=== PATIENT | female | born 1940 | race Caucasian/White ===

== ENCOUNTER 2016-11-23 07:46 | Observation (INO) | payer OTHER ==
[~2016-11-23] VITALS: Ht 165.1 cm; Wt 90.7 kg
--- NOTE | 2016-11-23 08:29 | PHYS DOC ---
Past Medical History Past Medical History: Diabetes-Type I, Hypertension Past Surgical History: No Surgical History Smoking: Quit Greater Than 1 Year Alcohol Use: None Drug Use: None Adult General Chief Complaint Chief Complaint: MULTIPLE COMPLAINTS HPI HPI Patient is a 76 year old female presents to the emergency department with a history of confusion, SOA, fever and productive yellow cough for the last week. Family states she has had normal BS until recently and then they became high. Patient and family are unsure of fever at home. Patient has past hx of smoking. Does not require home O2. Patients O2 sats in upper 80s on RA. Review of Systems Review of Systems Constitutional: Denies fever or chills [] Eyes: Denies change in visual acuity, redness, or eye pain [] HENT: Denies nasal congestion or sore throat [] Respiratory: cough and shortness of breath [] Cardiovascular: No additional information not addressed in HPI [] GI: Denies abdominal pain, nausea, vomiting, bloody stools or diarrhea [] : Denies dysuria or hematuria [] Musculoskeletal: Denies back pain or joint pain [] Integument: Denies rash or skin lesions [] Neurologic: Denies headache, focal weakness or sensory changes. Family states she was confused Endocrine: Denies polyuria or polydipsia [] Current Medications Current Medications Current Medications Medications (Trade) Dose Ordered Sig/Jeevan Start Time Stop Time Status Last Admin Dose Admin Acetaminophen/ Hydrocodone Bitart (Lortab 5/325) 1 tab 1X ONCE 11/23/16 09:30 11/23/16 09:31 DC 11/23/16 09:50 1 TAB Albuterol/ Ipratropium (Duoneb) 3 ml 1X ONCE 11/23/16 08:30 11/23/16 08:31 DC 11/23/16 08:35 3 ML Methylprednisolone Sodium Succinate (SOLU-Medrol 125MG VIAL) 125 mg 1X ONCE 11/23/16 08:30 11/23/16 08:31 DC 11/23/16 09:08 125 MG Sodium Chloride 500 ml @ 1,000 mls/hr 1X ONCE 11/23/16 08:30 11/23/16 08:59 DC 11/23/16 09:02 1,000 MLS/HR Allergies Allergies Allergies Coded Allergies Type Severity Reaction Last Updated Verified No Known Drug Allergies 11/23/16 No Physical Exam Physical Exam Constitutional: Well developed, well nourished, no acute distress, non-toxic appearance. [] HENT: Normocephalic, atraumatic, bilateral external ears normal, oropharynx moist, no oral exudates, nose normal. [] Eyes: PERRLA, EOMI, conjunctiva normal, no discharge. [] Neck: Normal range of motion, no tenderness, supple, no stridor. [] Cardiovascular:Heart rate regular rhythm, no murmur [] Lungs & Thorax: Bilateral breath sounds decreased bilaterally Skin: Warm, dry, no erythema, no rash. [] Back: No tenderness Extremities: No tenderness, no cyanosis, no clubbing, ROM intact, no edema. [] Neurologic: Alert and oriented X 3, normal motor function, normal sensory function, no focal deficits noted. [] Psychologic: Affect normal, judgement normal, mood normal. [] Current Patient Data Vital Signs Vital Signs Date Time Temp Pulse Resp B/P (MAP) Pulse Ox O2 Delivery O2 Flow Rate FiO2 11/23/16 09:50 26 11/23/16 08:41 98 Nasal Cannula 2.0 11/23/16 08:38 99.9 113 131/83 (99) 99.9 Lab Values Laboratory Tests Test 11/23/16 08:13 11/23/16 08:30 White Blood Count 6.0 x10^3/uL (4.0-11.0) Red Blood Count 4.14 x10^6/uL (3.50-5.40) Hemoglobin 12.7 g/dL (12.0-15.5) Hematocrit 37.1 % (36.0-47.0) Mean Corpuscular Volume 90 fL (79-100) Mean Corpuscular Hemoglobin 31 pg (25-35) Mean Corpuscular Hemoglobin Concent 34 g/dL (31-37) Red Cell Distribution Width 15.6 % (11.5-14.5) H Platelet Count 190 x10^3/uL (140-400) Neutrophils (%) (Auto) 67 % (31-73) Lymphocytes (%) (Auto) 13 % (24-48) L Monocytes (%) (Auto) 18 % (0-9) H Eosinophils (%) (Auto) 1 % (0-3) Basophils (%) (Auto) 0 % (0-3) Neutrophils # (Auto) 4.0 x10^3uL (1.8-7.7) Lymphocytes # (Auto) 0.8 x10^3/uL (1.0-4.8) L Monocytes # (Auto) 1.1 x10^3/uL (0.0-1.1) Eosinophils # (Auto) 0.1 x10^3/uL (0.0-0.7) Basophils # (Auto) 0.0 x10^3/uL (0.0-0.2) Sodium Level 140 mmol/L (136-145) Potassium Level 4.9 mmol/L (3.5-5.1) Chloride Level 102 mmol/L (98-107) Carbon Dioxide Level 28 mmol/L (21-32) Anion Gap 10 (6-14) Blood Urea Nitrogen 27 mg/dL (7-20) H Creatinine 1.2 mg/dL (0.6-1.0) H Estimated GFR (Cockcroft-Gault) 43.9 BUN/Creatinine Ratio 23 (6-20) H Glucose Level 233 mg/dL (70-99) H Lactic Acid Level 1.1 mmol/L (0.4-2.0) Calcium Level 10.4 mg/dL (8.5-10.1) H Total Bilirubin 1.0 mg/dL (0.2-1.0) Aspartate Amino Transferase (AST) 26 U/L (15-37) Alanine Aminotransferase (ALT) 18 U/L (14-59) Alkaline Phosphatase 142 U/L (46-116) H Troponin I Quantitative < 0.017 ng/mL (0.000-0.055) Total Protein 7.7 g/dL (6.4-8.2) Albumin 3.4 g/dL (3.4-5.0) Albumin/Globulin Ratio 0.8 (1.0-1.7) L Urine Collection Type Unknown Urine Color Maria Luz Urine Clarity Clear Urine pH 5.5 Urine Specific [place] 1.020 Urine Protein 30 mg/dL (NEG-TRACE) Urine Glucose (UA) 500 mg/dL (NEG) Urine Ketones (Stick) Trace mg/dL (NEG) Urine Blood Negative (NEG) Urine Nitrite Negative (NEG) Urine Bilirubin Small (NEG) Urine Urobilinogen Dipstick 1.0 mg/dL (0.2 mg/dL) Urine Leukocyte Esterase Negative (NEG) Urine RBC 0 /HPF (0-2) Urine WBC Occ /HPF (0-4) Urine Squamous Epithelial Cells Many /LPF Urine Bacteria Few /HPF (0-FEW) Urine Hyaline Casts Few /HPF Urine Mucus Mod /LPF Laboratory Tests 11/23/16 08:13 Laboratory Tests 11/23/16 08:13 EKG EKG EKG completed at [address] no STEMI per Dr Pelayo[] Radiology/Procedures Radiology/Procedures [][facility] [address] [place] [address] IMAGING REPORT Signed PATIENT: BRENNA RODGERS ACCOUNT: [id number] : 1940 LOCATION: ER AGE: 76 SEX: F EXAM STATUS: PRE ER ORD. PHYSICIAN: GILBERT DE LEÓN APRN REASON: SOA, productive cough x 1 week PROCEDURE: PORTABLE CHEST 1V INDICATION: SOA, productive cough x 1 week COMPARISON: 05/05/2010 FINDINGS: Single view of chest obtained. Mild calcific atherosclerosis. No definite focal airspace consolidation or pulmonary edema. Cardiac silhouette is not enlarged Degenerative changes left shoulder. IMPRESSION: No definite focal airspace consolidation or edema. DICTATED and SIGNED BY: YOUSUF JOHNSON MD DATE: 11/23/16 0903 CC: GILBERT DE LEÓN APRN; VANESSA BURCH MD ~ Course & Med Decision Making Course & Med Decision Making Pertinent Labs and Imaging studies reviewed. (See chart for details) Patient was placed on O2 at 2 L per NC with O2 sats increased to 94%. Patient with RT treatment with minimal improvement noted. Patient with tailbone pain from fall. [place] given to patient Spoke with Dr Cordoba in regards to patient being placed in the hospital as observation. [] Dragon Disclaimer Dragon Disclaimer This electronic medical record was generated, in whole or in part, using a voice recognition dictation system. Departure Departure Impression: Primary Impression: Dyspnea Disposition: ADMITTED INPATIENT Admitting Physician: Vern Cordoba Referrals: VANESSA BURCH MD (PCP) GILBERT DE LEÓN APRN Nov 23, 2016 08:29
[2016-11-23] MEDS ORDERED: IPRATRPIUM/ALBUTEROL 0.5/2.5MG 3 ML NEBU. NEB ONE (08:30)
[2016-11-23] MEDS ORDERED: IV NORMAL SALINE 1000ML BAG 500 ML IV ONE (08:30)
[2016-11-23] MEDS ORDERED: methylPREDNISolone SOD SUCC PF 125 MG/2 ML VIAL. IV ONE (08:30)
[2016-11-23 08:39] LABS: BASO % 0 % (0-3); EOS % 1 % (0-3); HEMATOCRIT 37.1 % (36.0-47.0); HEMOGLOBIN 12.7 g/dL (12.0-15.5); LYMPH # 0.8 x10^3/uL (1.0-4.8); LYMPH % 13 % (24-48); MEAN CORPUSCULAR HEMOGLOBIN 31 pg (25-35); MEAN CORPUSCULAR HGB CONC 34 g/dL (31-37); MEAN CORPUSCULAR VOLUME 90 fL (79-100); MONO % 18 % (0-9); NEUT % 67 % (31-73); PLATELET COUNT 190 x10^3/uL (140-400); RED BLOOD COUNT 4.14 x10^6/uL (3.50-5.40); RED CELL DISTRIBUTION WIDTH 15.6 % (11.5-14.5)
[2016-11-23 08:48] LABS: BILIRUBIN,URINE SMALL (NEG); GLUCOSE,URINE 500 mg/dL (NEG); NITRITE,URINE NEGATIVE (NEG); PH,URINE 5.5; PROTEIN,URINE 30 mg/dL (NEG-TRACE)
[2016-11-23 08:53] LABS: CALCIUM 10.4 mg/dL (8.5-10.1); CREATININE 1.2 mg/dL (0.6-1.0); GFR 43.9; POTASSIUM 4.9 mmol/L (3.5-5.1)
[2016-11-23 08:59] LABS: ALBUMIN 3.4 g/dL (3.4-5.0); ALBUMIN/GLOBULIN RATIO 0.8 (1.0-1.7); TOTAL PROTEIN 7.7 g/dL (6.4-8.2)
--- NOTE | 2016-11-23 09:07 | RAD ---
INDICATION: SOA, productive cough x 1 week COMPARISON: 05/05/2010 FINDINGS: Single view of chest obtained. Mild calcific atherosclerosis. No definite focal airspace consolidation or pulmonary edema. Cardiac silhouette is not enlarged Degenerative changes left shoulder. IMPRESSION: No definite focal airspace consolidation or edema.
[2016-11-23 09:26] LABS: RBC,URINE 0 /HPF (0-2); SQUAMOUS EPITHELIAL CELL,UR MANY /LPF
[2016-11-23 09:27] LABS: BACTERIA,URINE FEW /HPF (0-FEW); WBC,URINE OCC /HPF (0-4)
[2016-11-23] MEDS ORDERED: HYDROcodone/APAP 5/325MG 1 TAB TABLET PO ONE (09:30)
[2016-11-23] MEDS ORDERED: ACETAMINOPHEN 325 MG TABLET. PO PRN ×3 (10:00→15:00)
[2016-11-23] MEDS ORDERED: HYDROcodone/APAP 5/325MG 1 TAB TABLET PO PRN ×2 (10:00→13:00)
--- NOTE | 2016-11-23 10:19 | EKG ---
[facility] [address] [place] [address] Test Date: 2016-11-23 Test Time: 08:54:19 Pat Name: BRENNA RODGERS Department: Room: Gender: F [employer]: : 1940 Requested By: GILBERT DE LEÓN Order Number: [id number] Reading MD: Measurements Intervals [place] Rate: 109 P: 48 MS: 162 QRS: -28 QRSD: 64 T: 40 QT: 286 QTc: 386 Interpretive Statements SINUS TACHYCARDIA LEFT ATRIAL ABNORMALITY LEFTWARD AXIS QRS(T) CONTOUR ABNORMALITY CONSISTENT WITH ANTEROSEPTAL INFARCT AGE UNDETERMINED RI6.01 Unconfirmed report No previous ECG available for comparison
[2016-11-23 12:10] VITALS: BP 136/69
[2016-11-23] MEDS ORDERED: AMLO5TAB2 PO (12:39)
[2016-11-23] MEDS ORDERED: LIPITOR80 MG PO (12:39)
[2016-11-23] MEDS ORDERED: DIVA500T9 PO (12:39)
[2016-11-23] MEDS ORDERED: OMEG1CAP6 PO (12:39)
[2016-11-23] MEDS ORDERED: GLIP5TAB10 PO (12:39)
[2016-11-23] MEDS ORDERED: QUET300T5 PO (12:39)
[2016-11-23] MEDS ORDERED: METF500T4 PO (12:39)
[2016-11-23] MEDS ORDERED: ZOLP5TAB5 PO (12:39)
[2016-11-23] MEDS ORDERED: ONDANSETRON PF 4 MG/2 ML VIAL. IV PRN ×2 (13:00→15:00)
[2016-11-23] MEDS ORDERED: hydrALAZINE 20 MG/ML VIAL. IVP PRN ×2 (13:00→15:00)
[2016-11-23] MEDS ORDERED: ALBUTEROL SULFATE 2.5 MG/3 ML NEBU. NEB PRN ×2 (13:00→15:00)
[2016-11-23] MEDS: IPRATRPIUM/ALBUTEROL 0.5/2.5MG 3 ML NEBU. NEB SCH ×3 (13:01→19:11)
--- NOTE | 2016-11-23 14:56 | PDOC1 ---
History and Physical Identification/Chief Complaint Chief Complaint Date of examination: 11/23/2016 Chief complaint: cough and shortness of breath History of present illness: A 76-year-old female patient with prior history of hypertension and type 2 diabetes mellitus presented to the ER with worsening shortness of breath for nearly one week with cough expectoration and subjective fevers at home, as per the ER notes patient was running to keep her without any shortness of breath. At the time of examination on floor, patient still complains of shortness of breath with cough with expectoration denies any fever , denies any chills, denies any travel history. Patient had limited mobility due to her fall in the past. She is not a smoker quit smoking been 20 years ago. She denies any chest pain or syncope Past medical history hypertension and type 2 diabetes mellitus Family history heart disease Personal history no smoking no alcohol no drug abuse Problems: Current Problem List Problem List Problems Medical Problems: (1) Dyspnea Status: Acute Current Medications Current Medications Current Medications Medications (Trade) Dose Ordered Sig/Jeevan Start Time Stop Time Status Last Admin Dose Admin Acetaminophen (Tylenol) 325 mg PRN Q6HRS PRN 11/23/16 13:00 Acetaminophen/ Hydrocodone Bitart (Lortab 5/325) 1 tab PRN Q6HRS PRN 11/23/16 13:00 Albuterol Sulfate (Ventolin Neb Soln) 2.5 mg PRN Q4HRS PRN 11/23/16 13:00 Albuterol/ Ipratropium (Duoneb) 3 ml RTQID 11/23/16 12:00 11/23/16 13:01 3 ML Amlodipine Besylate (Norvasc) 5 mg DAILY 11/24/16 09:00 Atorvastatin Calcium (Lipitor) 80 mg QHS 11/23/16 21:00 Divalproex Sodium (Depakote) 500 mg HS 11/23/16 21:00 Glipizide (Glucotrol) 5 mg BIDBFRMEAL 11/23/16 16:30 Hydralazine HCl (Apresoline) 10 mg PRN Q4HRS PRN 11/23/16 13:00 Metformin HCl (Glucophage) 500 mg BIDWMEALS 11/23/16 17:00 Methylprednisolone Sodium Succinate (SOLU-Medrol 125MG VIAL) 125 mg 1X ONCE 11/23/16 08:30 11/23/16 08:31 DC 11/23/16 09:08 125 MG Ondansetron HCl (Zofran) 4 mg PRN Q8HRS PRN 11/23/16 13:00 Prednisone (Prednisone) 40 mg DAILY 11/24/16 09:00 Quetiapine Fumarate (SEROquel XR) 300 mg HS 11/24/16 09:00 Sodium Chloride 500 ml @ 1,000 mls/hr 1X ONCE 11/23/16 08:30 11/23/16 08:59 DC 11/23/16 09:02 1,000 MLS/HR Zolpidem Tartrate (Ambien) 5 mg HS 11/23/16 21:00 Allergies Allergies Allergies Coded Allergies Type Severity Reaction Last Updated Verified No Known Drug Allergies 11/23/16 No ROS Review of System CONSTITUTIONAL: No fever or chills EYES: No recent changes SKIN: No rash or itching CARDIOVASCULAR: No chest pain, syncope, palpitations, or edema RESPIRATORY: SOB or cough GASTROINTESTINAL: No nausea, vomiting or abdominal pain NEUROLOGICAL: No headaches or weakness ENDOCRINE: No cold or heat intolerance GENITOURINARY: No urgency or frequency of urination MUSCULOSKELETAL: No back pain or joint pain LYMPHATICS: No enlarged lymph nodes PSYCHIATRIC: No anxiety or depression Physical Exam Physical Exam GEN.: No apparent distress. Alert and oriented. HEENT: Head is normocephalic, atraumatic NECK: Supple. No JVD LUNGS: Normal airflow, basal rales HEART: RRR, S1, S2 present. Peripheral pulses intact ABDOMEN: Soft, nontender. Positive bowel sounds. EXTREMITIES: Without any cyanosis. NEUROLOGIC: Normal speech, normal tone PSYCHIATRIC: Normal affect, normal mood. SKIN: No visible cyanosis or erythema Vitals Vitals Vital Signs Date Time Temp Pulse Resp B/P (MAP) Pulse Ox O2 Delivery O2 Flow Rate FiO2 11/23/16 13:04 98 Nasal Cannula 2.0 11/23/16 12:10 97.9 98 18 136/69 (91) 97.9 Labs Labs Laboratory Tests Test 11/23/16 08:13 11/23/16 08:30 White Blood Count 6.0 x10^3/uL (4.0-11.0) Red Blood Count 4.14 x10^6/uL (3.50-5.40) Hemoglobin 12.7 g/dL (12.0-15.5) Hematocrit 37.1 % (36.0-47.0) Mean Corpuscular Volume 90 fL (79-100) Mean Corpuscular Hemoglobin 31 pg (25-35) Mean Corpuscular Hemoglobin Concent 34 g/dL (31-37) Red Cell Distribution Width 15.6 % (11.5-14.5) Platelet Count 190 x10^3/uL (140-400) Neutrophils (%) (Auto) 67 % (31-73) Lymphocytes (%) (Auto) 13 % (24-48) Monocytes (%) (Auto) 18 % (0-9) Eosinophils (%) (Auto) 1 % (0-3) Basophils (%) (Auto) 0 % (0-3) Neutrophils # (Auto) 4.0 x10^3uL (1.8-7.7) Lymphocytes # (Auto) 0.8 x10^3/uL (1.0-4.8) Monocytes # (Auto) 1.1 x10^3/uL (0.0-1.1) Eosinophils # (Auto) 0.1 x10^3/uL (0.0-0.7) Basophils # (Auto) 0.0 x10^3/uL (0.0-0.2) Sodium Level 140 mmol/L (136-145) Potassium Level 4.9 mmol/L (3.5-5.1) Chloride Level 102 mmol/L (98-107) Carbon Dioxide Level 28 mmol/L (21-32) Anion Gap 10 (6-14) Blood Urea Nitrogen 27 mg/dL (7-20) Creatinine 1.2 mg/dL (0.6-1.0) Estimated GFR (Cockcroft-Gault) 43.9 BUN/Creatinine Ratio 23 (6-20) Glucose Level 233 mg/dL (70-99) Lactic Acid Level 1.1 mmol/L (0.4-2.0) Calcium Level 10.4 mg/dL (8.5-10.1) Total Bilirubin 1.0 mg/dL (0.2-1.0) Aspartate Amino Transf (AST/SGOT) 26 U/L (15-37) Alanine Aminotransferase (ALT/SGPT) 18 U/L (14-59) Alkaline Phosphatase 142 U/L (46-116) Troponin I Quantitative < 0.017 ng/mL (0.000-0.055) Total Protein 7.7 g/dL (6.4-8.2) Albumin 3.4 g/dL (3.4-5.0) Albumin/Globulin Ratio 0.8 (1.0-1.7) Urine Collection Type Unknown Urine Color Maria Luz Urine Clarity Clear Urine pH 5.5 Urine Specific [place] 1.020 Urine Protein 30 mg/dL (NEG-TRACE) Urine Glucose (UA) 500 mg/dL (NEG) Urine Ketones (Stick) Trace mg/dL (NEG) Urine Blood Negative (NEG) Urine Nitrite Negative (NEG) Urine Bilirubin Small (NEG) Urine Urobilinogen Dipstick 1.0 mg/dL (0.2 mg/dL) Urine Leukocyte Esterase Negative (NEG) Urine RBC 0 /HPF (0-2) Urine WBC Occ /HPF (0-4) Urine Squamous Epithelial Cells Many /LPF Urine Bacteria Few /HPF (0-FEW) Urine Hyaline Casts Few /HPF Urine Mucus Mod /LPF Laboratory Tests Test 11/23/16 08:13 11/23/16 08:30 White Blood Count 6.0 x10^3/uL (4.0-11.0) Red Blood Count 4.14 x10^6/uL (3.50-5.40) Hemoglobin 12.7 g/dL (12.0-15.5) Hematocrit 37.1 % (36.0-47.0) Mean Corpuscular Volume 90 fL (79-100) Mean Corpuscular Hemoglobin 31 pg (25-35) Mean Corpuscular Hemoglobin Concent 34 g/dL (31-37) Red Cell Distribution Width 15.6 % (11.5-14.5) Platelet Count 190 x10^3/uL (140-400) Neutrophils (%) (Auto) 67 % (31-73) Lymphocytes (%) (Auto) 13 % (24-48) Monocytes (%) (Auto) 18 % (0-9) Eosinophils (%) (Auto) 1 % (0-3) Basophils (%) (Auto) 0 % (0-3) Neutrophils # (Auto) 4.0 x10^3uL (1.8-7.7) Lymphocytes # (Auto) 0.8 x10^3/uL (1.0-4.8) Monocytes # (Auto) 1.1 x10^3/uL (0.0-1.1) Eosinophils # (Auto) 0.1 x10^3/uL (0.0-0.7) Basophils # (Auto) 0.0 x10^3/uL (0.0-0.2) Sodium Level 140 mmol/L (136-145) Potassium Level 4.9 mmol/L (3.5-5.1) Chloride Level 102 mmol/L (98-107) Carbon Dioxide Level 28 mmol/L (21-32) Anion Gap 10 (6-14) Blood Urea Nitrogen 27 mg/dL (7-20) Creatinine 1.2 mg/dL (0.6-1.0) Estimated GFR (Cockcroft-Gault) 43.9 BUN/Creatinine Ratio 23 (6-20) Glucose Level 233 mg/dL (70-99) Lactic Acid Level 1.1 mmol/L (0.4-2.0) Calcium Level 10.4 mg/dL (8.5-10.1) Total Bilirubin 1.0 mg/dL (0.2-1.0) Aspartate Amino Transf (AST/SGOT) 26 U/L (15-37) Alanine Aminotransferase (ALT/SGPT) 18 U/L (14-59) Alkaline Phosphatase 142 U/L (46-116) Troponin I Quantitative < 0.017 ng/mL (0.000-0.055) Total Protein 7.7 g/dL (6.4-8.2) Albumin 3.4 g/dL (3.4-5.0) Albumin/Globulin Ratio 0.8 (1.0-1.7) Urine Collection Type Unknown Urine Color Maria Luz Urine Clarity Clear Urine pH 5.5 Urine Specific [place] 1.020 Urine Protein 30 mg/dL (NEG-TRACE) Urine Glucose (UA) 500 mg/dL (NEG) Urine Ketones (Stick) Trace mg/dL (NEG) Urine Blood Negative (NEG) Urine Nitrite Negative (NEG) Urine Bilirubin Small (NEG) Urine Urobilinogen Dipstick 1.0 mg/dL (0.2 mg/dL) Urine Leukocyte Esterase Negative (NEG) Urine RBC 0 /HPF (0-2) Urine WBC Occ /HPF (0-4) Urine Squamous Epithelial Cells Many /LPF Urine Bacteria Few /HPF (0-FEW) Urine Hyaline Casts Few /HPF Urine Mucus Mod /LPF VTE Prophylaxis Ordered VTE Prophylaxis Devices: Yes VTE Pharmacological Prophylaxi: Yes Assessment/Plan Assessment/Plan Acute respiratory distress possible due to pneumonia versus bronchitis Hyperlipidemia Hypertension Type 2 diabetes mellitus Plan As needed and Robitussin Continue IV Levaquin Supplemental oxygen as needed, patient do not take any oxygen at home Home medication continued Labs reviewed chest x-ray reviewed no acute findings noted Discharge planning tomorrow 6 minutes walk test before discharge CBC BMP and as needed bronchodilators Case discussed with ER JAMES GRAY MD Nov 23, 2016 14:56
[2016-11-23 14:57] VITALS: BP 118/53
[2016-11-23] MEDS ORDERED: levOFLOXacin PER PHARMACY. MC PRN (15:00)
[2016-11-23] MEDS ORDERED: guaiFENesin DM 200MG/20MG 10 ML SYRUP PO PRN (15:00)
[2016-11-23] MEDS: metFORMIN 500 MG TABLET PO SCH (17:21)
[2016-11-23] MEDS: glipiZIDE 5 MG TABLET PO SCH (17:21)
[2016-11-23 19:00] VITALS: BP 119/65
[2016-11-23] MEDS: DIVALPROEX DELAYED RELEASE 500 MG TABLET.DR. PO SCH (21:29)
[2016-11-23] MEDS: ZOLPIDEM 5 MG TABLET. PO SCH (21:29)
[2016-11-23] MEDS: ATORVASTATIN CALCIUM 40 MG TABLET. PO SCH (21:29)
[2016-11-23 23:00] VITALS: BP 128/66
[2016-11-24 05:40] LABS: BASO % 0 % (0-3); EOS % 0 % (0-3); HEMATOCRIT 35.6 % (36.0-47.0); HEMOGLOBIN 11.9 g/dL (12.0-15.5); LYMPH # 0.7 x10^3/uL (1.0-4.8); LYMPH % 13 % (24-48); MEAN CORPUSCULAR HEMOGLOBIN 31 pg (25-35); MEAN CORPUSCULAR HGB CONC 33 g/dL (31-37); MEAN CORPUSCULAR VOLUME 92 fL (79-100); MONO % 13 % (0-9); NEUT % 74 % (31-73); PLATELET COUNT 195 x10^3/uL (140-400); RED BLOOD COUNT 3.89 x10^6/uL (3.50-5.40); RED CELL DISTRIBUTION WIDTH 15.3 % (11.5-14.5); WHITE BLOOD COUNT 5.6 x10^3/uL (4.0-11.0)
[2016-11-24 05:44] LABS: CALCIUM 9.3 mg/dL (8.5-10.1); CREATININE 1.3 mg/dL (0.6-1.0); POTASSIUM 4.8 mmol/L (3.5-5.1)
[2016-11-24] MEDS: IPRATRPIUM/ALBUTEROL 0.5/2.5MG 3 ML NEBU. NEB SCH ×4 (07:07→20:02)
[2016-11-24 07:50] VITALS: BP 135/63
[2016-11-24] MEDS: metFORMIN 500 MG TABLET PO SCH ×2 (08:13→17:23)
[2016-11-24] MEDS: glipiZIDE 5 MG TABLET PO SCH ×2 (08:13→17:25)
[2016-11-24] MEDS: amLODIPine BESYLATE 5 MG TABLET PO SCH (08:14)
[2016-11-24] MEDS: predniSONE 20 MG TABLET PO SCH (08:14)
[2016-11-24] MEDS ORDERED: QUEtiapine 300 MG TAB.ER.24H. PO SCH (09:00)
[2016-11-24 10:57] VITALS: BP 132/77
[2016-11-24 14:59] VITALS: BP 163/106
[2016-11-24] MEDS ORDERED: DEXTROSE 50% 25 GM / 50ML DISP.SYRIN. IV PRN (15:15)
--- NOTE | 2016-11-24 15:18 | PDOC ---
PROGRESS NOTES Chief Complaint Chief Complaint acute hypoxic respiratory failure acute on chronic bronchitis poss COPD obesity, BMI 33 Dm2 History of Present Illness History of Present Illness cough, wheeze, dyspnea she reports not feeling much improved no event add inhl steroid, anti-tussive, consult PULM Vitals Vitals Vital Signs Date Time Temp Pulse Resp B/P (MAP) Pulse Ox O2 Delivery O2 Flow Rate FiO2 11/24/16 15:08 Nasal Cannula 2.5 11/24/16 14:59 98.1 105 18 163/106 (125) 94 98.1 Physical Exam General: Alert, Oriented X3, Cooperative, No acute distress Heart: Regular rate Lungs: Other (low volume, end vol rales, no wheeze, mod effort) Extremities: No clubbing, No edema, Normal pulses Skin: No breakdown, No significant lesion Labs LABS Laboratory Tests Test 11/24/16 04:50 11/24/16 07:31 White Blood Count 5.6 x10^3/uL (4.0-11.0) Red Blood Count 3.89 x10^6/uL (3.50-5.40) Hemoglobin 11.9 g/dL (12.0-15.5) Hematocrit 35.6 % (36.0-47.0) Mean Corpuscular Volume 92 fL (79-100) Mean Corpuscular Hemoglobin 31 pg (25-35) Mean Corpuscular Hemoglobin Concent 33 g/dL (31-37) Red Cell Distribution Width 15.3 % (11.5-14.5) Platelet Count 195 x10^3/uL (140-400) Neutrophils (%) (Auto) 74 % (31-73) Lymphocytes (%) (Auto) 13 % (24-48) Monocytes (%) (Auto) 13 % (0-9) Eosinophils (%) (Auto) 0 % (0-3) Basophils (%) (Auto) 0 % (0-3) Neutrophils # (Auto) 4.1 x10^3uL (1.8-7.7) Lymphocytes # (Auto) 0.7 x10^3/uL (1.0-4.8) Monocytes # (Auto) 0.7 x10^3/uL (0.0-1.1) Eosinophils # (Auto) 0.0 x10^3/uL (0.0-0.7) Basophils # (Auto) 0.0 x10^3/uL (0.0-0.2) Sodium Level 140 mmol/L (136-145) Potassium Level 4.8 mmol/L (3.5-5.1) Chloride Level 103 mmol/L (98-107) Carbon Dioxide Level 24 mmol/L (21-32) Anion Gap 13 (6-14) Blood Urea Nitrogen 32 mg/dL (7-20) Creatinine 1.3 mg/dL (0.6-1.0) Estimated GFR (Cockcroft-Gault) 40.0 Glucose Level 295 mg/dL (70-99) Calcium Level 9.3 mg/dL (8.5-10.1) Glucose (Fingerstick) 272 mg/dL (70-99) Review of Systems Review of Systems weakness lethargy cough, and dyspnea Assessment and Plan Assessmemt and Plan Problems Medical Problems: (1) Dyspnea Status: Acute Problems: Comment Review of Relevant I have reviewed the following items julita (where applicable) has been applied. Labs Laboratory Tests Test 11/23/16 08:13 11/23/16 08:30 11/24/16 04:50 11/24/16 07:31 White Blood Count 6.0 x10^3/uL (4.0-11.0) 5.6 x10^3/uL (4.0-11.0) Red Blood Count 4.14 x10^6/uL (3.50-5.40) 3.89 x10^6/uL (3.50-5.40) Hemoglobin 12.7 g/dL (12.0-15.5) 11.9 g/dL (12.0-15.5) Hematocrit 37.1 % (36.0-47.0) 35.6 % (36.0-47.0) Mean Corpuscular Volume 90 fL (79-100) 92 fL (79-100) Mean Corpuscular Hemoglobin 31 pg (25-35) 31 pg (25-35) Mean Corpuscular Hemoglobin Concent 34 g/dL (31-37) 33 g/dL (31-37) Red Cell Distribution Width 15.6 % (11.5-14.5) 15.3 % (11.5-14.5) Platelet Count 190 x10^3/uL (140-400) 195 x10^3/uL (140-400) Neutrophils (%) (Auto) 67 % (31-73) 74 % (31-73) Lymphocytes (%) (Auto) 13 % (24-48) 13 % (24-48) Monocytes (%) (Auto) 18 % (0-9) 13 % (0-9) Eosinophils (%) (Auto) 1 % (0-3) 0 % (0-3) Basophils (%) (Auto) 0 % (0-3) 0 % (0-3) Neutrophils # (Auto) 4.0 x10^3uL (1.8-7.7) 4.1 x10^3uL (1.8-7.7) Lymphocytes # (Auto) 0.8 x10^3/uL (1.0-4.8) 0.7 x10^3/uL (1.0-4.8) Monocytes # (Auto) 1.1 x10^3/uL (0.0-1.1) 0.7 x10^3/uL (0.0-1.1) Eosinophils # (Auto) 0.1 x10^3/uL (0.0-0.7) 0.0 x10^3/uL (0.0-0.7) Basophils # (Auto) 0.0 x10^3/uL (0.0-0.2) 0.0 x10^3/uL (0.0-0.2) Sodium Level 140 mmol/L (136-145) 140 mmol/L (136-145) Potassium Level 4.9 mmol/L (3.5-5.1) 4.8 mmol/L (3.5-5.1) Chloride Level 102 mmol/L (98-107) 103 mmol/L (98-107) Carbon Dioxide Level 28 mmol/L (21-32) 24 mmol/L (21-32) Anion Gap 10 (6-14) 13 (6-14) Blood Urea Nitrogen 27 mg/dL (7-20) 32 mg/dL (7-20) Creatinine 1.2 mg/dL (0.6-1.0) 1.3 mg/dL (0.6-1.0) Estimated GFR (Cockcroft-Gault) 43.9 40.0 BUN/Creatinine Ratio 23 (6-20) Glucose Level 233 mg/dL (70-99) 295 mg/dL (70-99) Lactic Acid Level 1.1 mmol/L (0.4-2.0) Calcium Level 10.4 mg/dL (8.5-10.1) 9.3 mg/dL (8.5-10.1) Total Bilirubin 1.0 mg/dL (0.2-1.0) Aspartate Amino Transf (AST/SGOT) 26 U/L (15-37) Alanine Aminotransferase (ALT/SGPT) 18 U/L (14-59) Alkaline Phosphatase 142 U/L (46-116) Troponin I Quantitative < 0.017 ng/mL (0.000-0.055) Total Protein 7.7 g/dL (6.4-8.2) Albumin 3.4 g/dL (3.4-5.0) Albumin/Globulin Ratio 0.8 (1.0-1.7) Urine Collection Type Unknown Urine Color Maria Luz Urine Clarity Clear Urine pH 5.5 Urine Specific [place] 1.020 Urine Protein 30 mg/dL (NEG-TRACE) Urine Glucose (UA) 500 mg/dL (NEG) Urine Ketones (Stick) Trace mg/dL (NEG) Urine Blood Negative (NEG) Urine Nitrite Negative (NEG) Urine Bilirubin Small (NEG) Urine Urobilinogen Dipstick 1.0 mg/dL (0.2 mg/dL) Urine Leukocyte Esterase Negative (NEG) Urine RBC 0 /HPF (0-2) Urine WBC Occ /HPF (0-4) Urine Squamous Epithelial Cells Many /LPF Urine Bacteria Few /HPF (0-FEW) Urine Hyaline Casts Few /HPF Urine Mucus Mod /LPF Glucose (Fingerstick) 272 mg/dL (70-99) Laboratory Tests Test 11/24/16 04:50 11/24/16 07:31 White Blood Count 5.6 x10^3/uL (4.0-11.0) Red Blood Count 3.89 x10^6/uL (3.50-5.40) Hemoglobin 11.9 g/dL (12.0-15.5) Hematocrit 35.6 % (36.0-47.0) Mean Corpuscular Volume 92 fL (79-100) Mean Corpuscular Hemoglobin 31 pg (25-35) Mean Corpuscular Hemoglobin Concent 33 g/dL (31-37) Red Cell Distribution Width 15.3 % (11.5-14.5) Platelet Count 195 x10^3/uL (140-400) Neutrophils (%) (Auto) 74 % (31-73) Lymphocytes (%) (Auto) 13 % (24-48) Monocytes (%) (Auto) 13 % (0-9) Eosinophils (%) (Auto) 0 % (0-3) Basophils (%) (Auto) 0 % (0-3) Neutrophils # (Auto) 4.1 x10^3uL (1.8-7.7) Lymphocytes # (Auto) 0.7 x10^3/uL (1.0-4.8) Monocytes # (Auto) 0.7 x10^3/uL (0.0-1.1) Eosinophils # (Auto) 0.0 x10^3/uL (0.0-0.7) Basophils # (Auto) 0.0 x10^3/uL (0.0-0.2) Sodium Level 140 mmol/L (136-145) Potassium Level 4.8 mmol/L (3.5-5.1) Chloride Level 103 mmol/L (98-107) Carbon Dioxide Level 24 mmol/L (21-32) Anion Gap 13 (6-14) Blood Urea Nitrogen 32 mg/dL (7-20) Creatinine 1.3 mg/dL (0.6-1.0) Estimated GFR (Cockcroft-Gault) 40.0 Glucose Level 295 mg/dL (70-99) Calcium Level 9.3 mg/dL (8.5-10.1) Glucose (Fingerstick) 272 mg/dL (70-99) Microbiology 11/23/16 Blood Culture - Preliminary, Resulted NO GROWTH AFTER 1 DAY Medications Current Medications Albuterol/ Ipratropium (Duoneb) 3 ml 1X ONCE NEB Last administered on 08:35; Start 11/23/16 at 08:30; Stop 11/23/16 at 08:31; Status DC Sodium Chloride 500 ml @ 1,000 mls/hr 1X ONCE IV Last administered on 09:02; Start 11/23/16 at 08:30; Stop 11/23/16 at 08:59; Status DC Methylprednisolone Sodium Succinate (SOLU-Medrol 125MG VIAL) 125 mg 1X ONCE IV Last administered on 11/23/16 09:08; Start 11/23/16 at 08:30; Stop 11/23/16 at 08:31; Status DC Acetaminophen/ Hydrocodone Bitart (Lortab 5/325) 1 tab 1X ONCE PO Last administered on 11/23/16 09:50; Start 11/23/16 at 09:30; Stop 11/23/16 at 09:31 ; Status DC Acetaminophen (Tylenol) 650 mg PRN Q4HRS PRN PO FEVER; Start 11/23/16 at 10:00 ; Stop 11/24/16 at 09:59; Status DC Albuterol/ Ipratropium (Duoneb) 3 ml RTQID NEB Last administered on 11/24/16 15:04; Start 11/23/16 at 12:00 Albuterol Sulfate (Ventolin Neb Soln) 2.5 mg PRN Q4HRS PRN NEB wheezing; Start 11/23/16 at 10:00 Prednisone (Prednisone) 40 mg DAILY PO Last administered on 11/24/16 08:14; Start 11/24/16 at 09:00 Acetaminophen/ Hydrocodone Bitart (Lortab 5/325) 1 tab PRN Q4HRS PRN PO pain; Start 11/23/16 at 10:00; Status Cancel Acetaminophen (Tylenol) 325 mg PRN Q6HRS PRN PO MILD PAIN / TEMP; Start at 13:00; Status Cancel Acetaminophen/ Hydrocodone Bitart (Lortab 5/325) 1 tab PRN Q6HRS PRN PO MODERATE TO SEVERE PAIN; Start 11/23/16 at 13:00; Status Cancel Hydralazine HCl (Apresoline) 10 mg PRN Q4HRS PRN IVP ELEVATED BP, SEE COMMENTS ; Start 11/23/16 at 13:00; Status Cancel Ondansetron HCl (Zofran) 4 mg PRN Q8HRS PRN IV NAUSEA/VOMITING; Start 11/23/16 at 13:00; Status Cancel Albuterol Sulfate (Ventolin Neb Soln) 2.5 mg PRN Q4HRS PRN NEB SHORTNESS OF BREATH; Start 11/23/16 at 13:00; Status Cancel Amlodipine Besylate (Norvasc) 5 mg DAILY PO Last administered on 11/24/16 08: 14; Start 11/24/16 at 09:00 Divalproex Sodium (Depakote) 500 mg HS PO Last administered on 11/23/16 21:29 ; Start 11/23/16 at 21:00 Glipizide (Glucotrol) 5 mg BIDBFRMEAL PO Last administered on 11/24/16 08:13; Start 11/23/16 at 16:30 Metformin HCl (Glucophage) 500 mg BIDWMEALS PO Last administered on 11/24/16 08:13; Start 11/23/16 at 17:00 Zolpidem Tartrate (Ambien) 5 mg HS PO Last administered on 11/23/16 21:29; Start 11/23/16 at 21:00 Atorvastatin Calcium (Lipitor) 80 mg QHS PO Last administered on 11/23/16 21: 29; Start 11/23/16 at 21:00 Quetiapine Fumarate (SEROquel XR) 300 mg HS PO ; Start 11/24/16 at 09:00; Stop 11/24/16 at 10:50; Status DC Levofloxacin/ Dextrose (Levaquin Per Pharmacy) 1 each PRN DAILY PRN MC SEE COMMENTS; Start 11/23/16 at 15:00 Guaifenesin (Robitussin Dm) 10 ml PRN Q6HRS PRN PO COUGH; Start 11/23/16 at 15: 00 Acetaminophen (Tylenol) 325 mg PRN Q6HRS PRN PO MILD PAIN / TEMP; Start at 15:00 Acetaminophen/ Hydrocodone Bitart (Lortab 5/325) 1 tab PRN Q6HRS PRN PO MODERATE TO SEVERE PAIN; Start 11/23/16 at 15:00 Hydralazine HCl (Apresoline) 10 mg PRN Q4HRS PRN IVP ELEVATED BP, SEE COMMENTS ; Start 11/23/16 at 15:00 Ondansetron HCl (Zofran) 4 mg PRN Q8HRS PRN IV NAUSEA/VOMITING; Start 11/23/16 at 15:00 Albuterol Sulfate (Ventolin Neb Soln) 2.5 mg PRN Q4HRS PRN NEB SHORTNESS OF BREATH; Start 11/23/16 at 15:00; Status Cancel Quetiapine Fumarate (SEROquel XR) 300 mg HS PO ; Start 11/24/16 at 21:00 Insulin Aspart (NovoLOG) 0-9 UNITS TIDWMEALS SQ ; Start 11/24/16 at 17:00 Dextrose (Dextrose 50%-Water Syringe) 12.5 gm PRN Q15MIN PRN IV SEE COMMENTS; Start 11/24/16 at 15:15 Active Scripts Active Reported Fish Oil 1,000 Mg Capsule ([place]-3 Fatty Acids/Fish Oil) 1 Each Capsule 1 Each PO DAILY Divalproex Sodium 500 Mg Tablet.dr 500 Mg PO HS Seroquel (Quetiapine Fumarate) 300 Mg Tablet 300 Mg PO HS Glipizide 5 Mg Tablet 5 Mg PO BIDBFRMEAL Zolpidem Tartrate 5 Mg Tablet 5 Mg PO HS Metformin Hcl 500 Mg Tablet 500 Mg PO BIDWMEALS Amlodipine Besylate 5 Mg Tablet 5 Mg PO DAILY Lipitor (Atorvastatin Calcium) 80 Mg Tablet 80 Mg PO DAILY Vitals/I & O Vital Sign - Last 24 Hours 11/23/16 11/23/16 11/23/16 11/23/16 16:51 19:00 19:13 20:00 Temp 97.5 97.5 Pulse 98 Resp 19 B/P (MAP) 119/65 (83) Pulse Ox 93 90 95 O2 Delivery Room Air Nasal Cannula Nasal Cannula Nasal Cannula O2 Flow Rate 4.0 2.5 2.5 11/23/16 11/24/16 11/24/16 11/24/16 23:00 07:10 07:50 08:00 Temp 97.3 97.5 97.3 97.5 Pulse 93 99 Resp 19 18 B/P (MAP) 128/66 (86) 135/63 (87) Pulse Ox 96 97 93 O2 Delivery Nasal Cannula Nasal Cannula Room Air Nasal Cannula O2 Flow Rate 4.0 2.5 3.0 4.0 11/24/16 11/24/16 11/24/16 11/24/16 08:14 10:57 11:44 14:59 Temp 97.7 98.1 97.7 98.1 Pulse 99 97 105 Resp 16 18 B/P (MAP) 135/63 132/77 (95) 163/106 (125) Pulse Ox 96 97 94 O2 Delivery Nasal Cannula Nasal Cannula Room Air O2 Flow Rate 3.0 2.5 11/24/16 15:08 O2 Delivery Nasal Cannula O2 Flow Rate 2.5 Intake and Output 11/23/16 11/23/16 11/24/16 15:00 23:00 07:00 Intake Total 250 ml 1500 ml Balance 250 ml 1500 ml JAQUELINE LAWRENCE MD Nov 24, 2016 15:18
[2016-11-24] MEDS: HYDROcodone/APAP 5/325MG 1 TAB TABLET PO PRN (15:46)
[2016-11-24] MEDS: guaiFENesin DM 200MG/20MG 10 ML SYRUP PO PRN (15:47)
[2016-11-24] MEDS: ENOXAPARIN 40 MG/0.4 ML SYRINGE. SQ SCH (17:26)
[2016-11-24] MEDS: INSULIN ASPART 300 UNITS/3 ML INSULN.PEN SQ SCH (17:34)
[2016-11-24 19:00] VITALS: BP 149/83
[2016-11-24] MEDS: BUDESONIDE 0.5 MG/2 ML NEBU. NEB SCH (20:03)
[2016-11-24] MEDS: ATORVASTATIN CALCIUM 40 MG TABLET. PO SCH (21:39)
[2016-11-24] MEDS: QUEtiapine 300 MG TAB.ER.24H. PO SCH (21:39)
[2016-11-24] MEDS: DIVALPROEX DELAYED RELEASE 500 MG TABLET.DR. PO SCH (21:39)
[2016-11-24] MEDS: ZOLPIDEM 5 MG TABLET. PO SCH (21:40)
[2016-11-24] MEDS: INSULIN DETEMIR 300 UNITS/3 ML INSULN.PEN. SQ SCH (21:52)
[2016-11-24 23:00] VITALS: BP 148/86
[2016-11-24] MEDS: ALBUTEROL SULFATE 2.5 MG/3 ML NEBU. NEB PRN (23:00)
[2016-11-25] VITALS (7 sets, daily range): BP systolic 122–160; BP diastolic 55–84
[2016-11-25 07:21] LABS: BASO % 0 % (0-3); EOS % 0 % (0-3); HEMATOCRIT 31.6 % (36.0-47.0); HEMOGLOBIN 10.6 g/dL (12.0-15.5); LYMPH # 1.9 x10^3/uL (1.0-4.8); LYMPH % 30 % (24-48); MEAN CORPUSCULAR HEMOGLOBIN 31 pg (25-35); MEAN CORPUSCULAR HGB CONC 34 g/dL (31-37); MEAN CORPUSCULAR VOLUME 91 fL (79-100); MONO % 19 % (0-9); NEUT % 51 % (31-73); PLATELET COUNT 207 x10^3/uL (140-400); RED BLOOD COUNT 3.49 x10^6/uL (3.50-5.40); RED CELL DISTRIBUTION WIDTH 15.6 % (11.5-14.5); WHITE BLOOD COUNT 6.5 x10^3/uL (4.0-11.0)
[2016-11-25 07:50] LABS: ALBUMIN 2.8 g/dL (3.4-5.0); ALBUMIN/GLOBULIN RATIO 0.7 (1.0-1.7); CALCIUM 9.8 mg/dL (8.5-10.1); CREATININE 1.1 mg/dL (0.6-1.0); GFR 48.6; POTASSIUM 4.2 mmol/L (3.5-5.1); TOTAL BILIRUBIN 0.3 mg/dL (0.2-1.0); TOTAL PROTEIN 6.6 g/dL (6.4-8.2)
[2016-11-25] MEDS: INSULIN ASPART 300 UNITS/3 ML INSULN.PEN SQ SCH ×3 (08:00→17:04)
[2016-11-25] MEDS: predniSONE 20 MG TABLET PO SCH (08:01)
[2016-11-25] MEDS: metFORMIN 500 MG TABLET PO SCH ×2 (08:01→16:49)
[2016-11-25] MEDS: amLODIPine BESYLATE 5 MG TABLET PO SCH (08:02)
[2016-11-25] MEDS: glipiZIDE 5 MG TABLET PO SCH ×2 (08:02→16:49)
[2016-11-25] MEDS: guaiFENesin DM 200MG/20MG 10 ML SYRUP PO PRN ×2 (08:02→20:49)
[2016-11-25] MEDS: BUDESONIDE 0.5 MG/2 ML NEBU. NEB SCH ×2 (08:52→20:06)
[2016-11-25] MEDS: IPRATRPIUM/ALBUTEROL 0.5/2.5MG 3 ML NEBU. NEB SCH ×4 (08:53→20:06)
[2016-11-25] MEDS ORDERED: MAGNESIUM CITRATE 296 ML SOLUTION. PO ONE (10:45)
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
[2016-11-25 11:16] LABS: ANISOCYTOSIS SLIGHT; OVALOCYTES FEW; PLT ESTIMATE ADEQUATE (ADEQUATE)
--- NOTE | 2016-11-25 12:17 | PDOC ---
Provider Note Provider Note [id number] acute resp fail acute bronchitis vs pneumonia acute bronchospasm see orders. ROLAND AGUILAR MD Nov 25, 2016 12:16
[2016-11-25] MEDS ORDERED: BENZOCAINE/MENTHOL LOZENGE. PO PRN (12:45)
--- NOTE | 2016-11-25 13:30 | CONS ---
DATE OF CONSULTATION: 11/25/2016 REASON FOR CONSULTATION: I was asked to see this 76-year-old lady for shortness of breath, acute respiratory failure, and cough. HISTORY OF PRESENT ILLNESS: She does have history of 82-dolr-fzkq smoking, stopped smoking 40 years ago. She has not been diagnosed with COPD or asthma, but she has had shortness of breath with activity. She is not active, she walks with a walker. She has had increased cough and shortness of breath for the past 10 days or so. She has yellow sputum production. She denies fever or chills. She has had nasal congestion. She denies chest pain. PAST MEDICAL HISTORY: Hypertension, diabetes mellitus. ALLERGIES: No known drug allergies. SOCIAL HISTORY: History of 06-vfig-uxih smoking, stopped smoking 40 years ago. FAMILY HISTORY: Her sister of cirrhosis. MEDICATIONS: Currently, she is on insulin, Seroquel, Lovenox, Norvasc, prednisone 40 mg daily, Ambien, metformin, Glucotrol, DuoNeb, Pulmicort. REVIEW OF SYSTEMS: As mentioned as above, other systems are otherwise negative. PHYSICAL EXAMINATION: GENERAL: This is an overweight lady. VITAL SIGNS: Her O2 saturation on 4 liters of oxygen is 92%, respiratory rate 18, heart rate 88, blood pressure 140/69, temperature 98.2. HEENT: Normocephalic, atraumatic. Pupils equal, round, reactive to light. Throat is clear. Nose: There is inflamed mucosa. NECK: There is no JVD, lymphadenopathy, or thyromegaly. CARDIOVASCULAR: Regular rate and rhythm. PMI is not displaced. CHEST: Inspection is normal. LUNGS: There are bibasilar crackles, end-expiratory wheezing. ABDOMEN: Soft. Bowel sounds are good. There is no mass. EXTREMITIES: There is no edema. LYMPHATICS: There is no lymphadenopathy. NEUROLOGIC: Alert and oriented x 3. SKIN: Chronic changes. LABORATORY DATA: I reviewed the following lab data: Chest x-ray does not show any infiltrate. WBC 6.5, hemoglobin 10.6, platelets 207, , potassium 4.2, chloride 105, CO2 of 28, glucose 121, BUN 37, creatinine 1.1. Total bilirubin 0.3, AST 31, ALT 21, alkaline phosphatase 111. IMPRESSION: 1. Acute hypoxemic respiratory failure secondary to acute bronchitis versus pneumonia, acute bronchospasm, rule out congestive heart failure versus others. 2. Acute bronchospasm. 3. Acute bronchitis versus pneumonia. 4. Hypertension. 5. Diabetes mellitus. 6. Anemia. 7. Ex-smoker. PLAN AND RECOMMENDATIONS: 1. Continue not smoking. 2. Bronchodilator. 3. Inhaled corticosteroid. 4. Prednisone with taper. 5. I agree with Levaquin. 6. I do recommend BNP. If it is abnormal, she would require an echocardiogram. 7. Titrate FiO2 to keep O2 saturation 91%. 8. If her respiratory status does not improve, she would require a CT angiogram. 9. The findings and recommendations were discussed with the patient and her . They understood and agreed to proceed with the plan. I have answered all of their questions. Thank you very much for allowing me to participate in care of this very nice lady. ROLAND AGUILAR M.D. DR: GIOVANNI/lydia JOB#: [id number] / [id number]
[2016-11-25] MEDS: BENZONATATE 100 MG CAPSULE. PO SCH ×2 (14:06→20:49)
[2016-11-25] MEDS: ENOXAPARIN 40 MG/0.4 ML SYRINGE. SQ SCH (16:50)
[2016-11-25] MEDS: DIVALPROEX DELAYED RELEASE 500 MG TABLET.DR. PO SCH (20:49)
[2016-11-25] MEDS: ATORVASTATIN CALCIUM 40 MG TABLET. PO SCH (20:49)
[2016-11-25] MEDS: QUEtiapine 300 MG TAB.ER.24H. PO SCH (20:49)
[2016-11-25] MEDS: ZOLPIDEM 5 MG TABLET. PO SCH (20:49)
[2016-11-25] MEDS: INSULIN DETEMIR 300 UNITS/3 ML INSULN.PEN. SQ SCH (20:55)
[2016-11-26] MEDS: ALBUTEROL SULFATE 2.5 MG/3 ML NEBU. NEB PRN ×2 (00:22→04:16)
[2016-11-26] MEDS: HYDROcodone/APAP 5/325MG 1 TAB TABLET PO PRN (02:18)
[2016-11-26 03:00] VITALS: BP_SYST 136; BP_SYST 161; BP_DIAS 63; BP_DIAS 89
[2016-11-26] MEDS ORDERED: LORazepam 0.5 MG TABLET PO PRN (04:00)
[2016-11-26 07:00] VITALS: BP 141/73
[2016-11-26] MEDS: BUDESONIDE 0.5 MG/2 ML NEBU. NEB SCH (07:22)
[2016-11-26] MEDS: IPRATRPIUM/ALBUTEROL 0.5/2.5MG 3 ML NEBU. NEB SCH ×3 (07:22→15:05)
[2016-11-26] MEDS: glipiZIDE 5 MG TABLET PO SCH ×2 (07:30→17:59)
[2016-11-26] MEDS: metFORMIN 500 MG TABLET PO SCH ×2 (08:00→17:59)
[2016-11-26] MEDS: INSULIN ASPART 300 UNITS/3 ML INSULN.PEN SQ SCH ×3 (08:00→18:01)
[2016-11-26] MEDS: amLODIPine BESYLATE 5 MG TABLET PO SCH (09:09)
[2016-11-26] MEDS: BENZONATATE 100 MG CAPSULE. PO SCH ×2 (09:09→14:12)
[2016-11-26] MEDS: predniSONE 20 MG TABLET PO SCH (09:09)
[2016-11-26 11:00] VITALS: BP 158/77
[2016-11-26] MEDS ORDERED: PRED-220 PO (11:12)
[2016-11-26] MEDS ORDERED: AZIT250T6 PO (11:12)
[2016-11-26] MEDS ORDERED: QUET300T5 PO (11:12)
[2016-11-26] MEDS ORDERED: IPRA4AER IH (11:14)
[2016-11-26 15:00] VITALS: BP 146/72
--- NOTE | 2016-11-26 15:36 | CARD ---
APPROVED REPORT EXAM: Two-dimensional and M-mode echocardiogram with Doppler and color Doppler. Other Information Quality : Poor INDICATION Dyspnea 2D DIMENSIONS RVDd2.9 (2.9-3.5cm)Left Atrium(2D)3.3 (1.6-4.0cm) IVSd1.1 (0.7-1.1cm)Aortic Root(2D)3.2 (2.0-3.7cm) LVDd3.9 (3.9-5.9cm)LVOT Diameter2.0 (1.8-2.4cm) PWd1.1 (0.7-1.1cm)LVDs2.8 (2.5-4.0cm) SV16.9 mlLVEF(%)50.0 (>50%) Aortic Valve AoV Peak Maurice.170.5cm/sAoV VTI33.7cm AO Peak GR.11.6mmHgLVOT Peak Maurice.106.6cm/s LVOT VTI 24.07cmAO Mean GR.6mmHg NEGAR (VMAX)1.51nv0AAQ (VTI)2.28cm2 Mitral Valve MV E Smmzymua75.4cm/sMV DECEL ELUG700ye MV A Stwfvihr129.3cm/sMV E Mean Gr.4mmHg MV UCE73fvO/A Ratio0.7 MV A Tsjsmqkt37wsJRQ (PHT)3.42cm2 TDI E/Lateral E'8.7E/Medial E'8.7 Pulmonary Valve PV Peak Lkzzkusk096.9cm/sPV Peak Grad.6mmHg RVOT VTI18.6cm Tricuspid Valve TR P. Jrcnmhvo913sa/sTR Peak Gr.34mmHg Pulmonary Vein S1 Velocity1.2cm/s LEFT VENTRICLE The left ventricle is normal size. There is normal left ventricular wall thickness. The left ventricu lar systolic function is normal and the ejection fraction is within normal range. EF 65% Grossly norm al wall motion. Technically very difficult study. The left ventricular diastolic function and filling is normal for age. RIGHT VENTRICLE The right ventricle is normal size. There is normal right ventricular wall thickness. The right ventr icular systolic function is normal. ATRIA The left atrium size is normal. The right atrium size is normal. The interatrial septum is intact wit h no evidence for an atrial septal defect or patent foramen ovale as noted on 2-D or Doppler imaging. AORTIC VALVE Not well visualized. Doppler and Color Flow revealed no significant aortic regurgitation. There is no significant aortic valvular stenosis. MITRAL VALVE There is no mitral valve stenosis. Doppler and Color Flow revealed no mitral valve regurgitation note d. TRICUSPID VALVE Doppler and Color Flow revealed mild tricuspid regurgitation. The PA pressure was estimated at 36 mmH g. PULMONIC VALVE Not well visualized. GREAT VESSELS The aortic root is normal in size. not visualized The IVC is normal in size and collapses >50% with i nspiration. PERICARDIAL EFFUSION There is no pleural effusion. There is no evidence of significant pericardial effusion. Critical Notification Critical Value: No <Conclusion> The left ventricular systolic function is normal and the ejection fraction is within normal range. EF 65% Grossly normal wall motion. Technically very difficult study. Doppler and Color Flow revealed mild tricuspid regurgitation. The PA pressure was estimated at 36 mmH g.
[2016-11-27] MEDS ORDERED: PROAIR HFA8.5 GM INH (13:46)
== END 2016-11-26 18:13 | disposition home or self-care (01) ==
LOC: ER 07:46 → 5 NORTH 08:30
PROVIDERS: ADMIT Internal Medicine; ATTEND Internal Medicine
DX: J96.01 Acute respiratory failure with hypoxia (principal); E78.5 Hyperlipidemia, unspecified; I10 Essential (primary) hypertension; D64.9 Anemia, unspecified; J20.9 Acute bronchitis, unspecified; J42 Unspecified chronic bronchitis; E66.9 Obesity, unspecified; E11.9 Type 2 diabetes mellitus without complications; Z79.4 Long term (current) use of insulin; Z87.891 Personal history of nicotine dependence; Z68.33 Body mass index [BMI] 33.0-33.9, adult; Z82.49 Family history of ischemic heart disease and other diseases of the circulatory system; K59.00 Constipation, unspecified
CPT/HCPCS: 36415; 71010; 80048; 80053; 81001; 82962; 83036; 83605; 83880; 84484; 85007; 85027; 87040; 93005; 93306; 94250; 94620; 94640; 94760; 96365; 96372; 96375; 97116; 97162; 97165; 99285; G0378; G8987; G8988; G8989; J1650; J1815; J1956; J2930; J7030; J7512; J7613; J7620; J7626; G0379

== ENCOUNTER → 2018-04-11 | Outpatient (CLI) | payer OTHER ==
[2017-09-24 11:00] VITALS: BP 171/56
[~2018-04-11] MED LIST: AMLO5TAB7 PO; AZIT250T6 PO; DIVA-53 PO; GLIP5TAB10 PO; IPRA4AER IH; LIPITOR80 MG PO; METF500T16 PO; OMEG1CAP6 PO; PRED-220 PO; PROAIR HFA8.5 GM INH; QUET100T4 PO; QUET300T5 PO; RANI150T2 PO; ZOLP5TAB5 PO
--- NOTE | 2018-04-12 10:18 | KCIC ---
Bone Densitometry - Lumbar Spine Clinical history: 77 year old postmenopausal female with history of adult fracturing, osteoporosis screening. Dual energy x-ray absorptiometry of the lumbar spine, as measured from L1-L4, reveals a bone mineral density of 1.242 gm/cm2. This value is 159 % of the bone density which would have been predicted for this 77-year-old female, based on age and weight regression equations. Today's measurement is also 119 % of peak bone density usually attained by the third decade. It is 1.8 standard deviations above the expected young adult normal value (T-score = 1.8 ). At this bone density level, there is normal bone density of the lumbar spine. Bone Densitometry -right hip Dual energy x-ray absorptiometry of the right femoral neck reveals a bone mineral density of 0.836 gm/cm2. This value is 116 % of the bone density which would have been predicted for this 77-year-old female , based on age and weight regression equations. Today's measurement is also 89 % of the peak bone density usually attained by the third decade. It is 0.9 standard deviations below the expected young adult normal value (T-score = -0.9 ). At this bone density level, there is low normal bone density of the right femoral neck. Bone Densitometry -left hip Dual energy x-ray absorptiometry of the left femoral neck reveals a bone mineral density of 0.802 gm/cm2. This value is 111 % of the bone density which would have been predicted for this 77-year-old female , based on age and weight regression equations. Today's measurement is also 85 % of the peak bone density usually attained by the third decade. It is 1.2 standard deviations below the expected young adult normal value (T-score = -1.2 ). At this bone density level, there is osteopenia of the left femoral neck. Impression: 1. Normal bone density of the lumbar spine. 2. Low normal bone density of the right femoral neck . 3. Osteopenia of the left femoral neck. Note: Definitions established by the World Health Organization: 1. Normal: T-score is -1.0 or above. 2. Osteopenia: T-score is between -1.0 and -2.5. 3. Osteoporosis: T-score is -2.5 or below. Electronically signed by: Hector Pedraza MD (04/12/2018 10:15 AM) [facility]
== END | disposition home or self-care (01) ==
LOC: KCIC DEXA 13:28
PROVIDERS: ATTEND Family Medicine
DX: Z13.820 Encounter for screening for osteoporosis (principal); M85.88 Other specified disorders of bone density and structure, other site; E11.9 Type 2 diabetes mellitus without complications
CPT/HCPCS: 77080

== ENCOUNTER → 2018-08-25 | Outpatient (CLI) | payer OTHER ==
[2017-09-24 11:00] VITALS: BP 171/56
[~2018-08-25] MED LIST changes: +ALBU2.5V8 INH; +AMLO5TAB10 PO; -AMLO5TAB7 PO; +CLON0.1T PO; -PROAIR HFA8.5 GM INH
--- NOTE | 2018-08-25 12:56 | KCIC ---
Bilateral digital screening mammograms with 3-D tomosynthesis: Reason for examination: Routine screening. Comparison is made to previous study dated 10/26/2014. Bilateral mammograms in CC and oblique projections were obtained with 2-D imaging and 3-D tomosynthesis imaging on a Siemens Inspiration unit and reviewed on the workstation. Interpretation was made with the benefit of CAD. The skin and nipples show no abnormalities. No abnormal axillary lymph nodes are seen. The breast parenchyma is predominantly fatty. (Breast density: Category A.) There are no dominant masses, suspicious calcifications or architectural distortion. Benign calcifications are present. Impression: No evidence of malignancy. Recommend routine screening. BI-RAD Category 2: Benign. "Our facility is accredited by the [employer] Mammography Program." This patient's information has been entered into a reminder system for the patient to be notified with the results of her examination and a target date for the next mammogram. Electronically signed by: Samanta Telles MD (08/25/2018 12:53 PM) [id number]
== END | disposition home or self-care (01) ==
LOC: KCIC MAMMO 09:48
PROVIDERS: ATTEND Family Medicine
DX: Z12.31 Encounter for screening mammogram for malignant neoplasm of breast (principal)
CPT/HCPCS: 77063; 77067

== ENCOUNTER 2018-09-11 23:56 | Emergency (ER) | payer OTHER ==
[~2018-09-11] VITALS: Ht 152.4 cm; Wt 86.2 kg
[~2018-09-11 23:56] MED LIST changes: -CLON0.1T PO
[2018-09-12] MEDS ORDERED: cloNIDine HCL 0.1 MG TABLET PO ONE (00:30)
[2018-09-12 01:17] LABS: BASO % 1 % (0-3); EOS # 0.1 x10^3/uL (0.0-0.7); EOS % 1 % (0-3); HEMATOCRIT 37.9 % (36.0-47.0); HEMOGLOBIN 12.6 g/dL (12.0-15.5); LYMPH # 2.4 x10^3/uL (1.0-4.8); LYMPH % 36 % (24-48); MEAN CORPUSCULAR HEMOGLOBIN 32 pg (25-35); MEAN CORPUSCULAR HGB CONC 33 g/dL (31-37); MEAN CORPUSCULAR VOLUME 97 fL (79-100); MONO # 0.6 x10^3/uL (0.0-1.1); MONO % 10 % (0-9); NEUT # 3.5 x10^3uL (1.8-7.7); NEUT % 52 % (31-73); PLATELET COUNT 181 x10^3/uL (140-400); RED BLOOD COUNT 3.91 x10^6/uL (3.50-5.40); RED CELL DISTRIBUTION WIDTH 13.5 % (11.5-14.5); WHITE BLOOD COUNT 6.7 x10^3/uL (4.0-11.0)
[2018-09-12 01:21] LABS: CALCIUM 10.1 mg/dL (8.5-10.1); CREATININE 1.2 mg/dL (0.6-1.0); GFR 43.8; POTASSIUM 4.1 mmol/L (3.5-5.1)
[2018-09-12 01:29] LABS: ALBUMIN 3.6 g/dL (3.4-5.0); ALBUMIN/GLOBULIN RATIO 1.1 (1.0-1.7); MAGNESIUM 1.5 mg/dL (1.8-2.4); TOTAL BILIRUBIN 0.3 mg/dL (0.2-1.0); TOTAL PROTEIN 6.8 g/dL (6.4-8.2)
[2018-09-12 01:35] LABS: CREATINE KINASE 61 U/L (26-192)
[2018-09-12] MEDS ORDERED: CLON0.1T PO (01:47)
--- NOTE | 2018-09-12 01:48 | PHYS DOC ---
Past Medical History Past Medical History: Anxiety, COPD, Depression, Diabetes-Type II, High Cholesterol, Hypertension, Other Additional Past Medical Histor: INSOMIA, Past Surgical History: No Surgical History Alcohol Use: None Drug Use: None Adult General Chief Complaint Chief Complaint: HYPERTENSION HPI HPI 77 y/o female presents with report of "shakiness" and elevated blood pressure. Patient has felt shaky all day today. Reports sensation of "coldness" in her back. Reports her family member is in healthcare and came to see patient and took her blood pressure which was "high". Patient took an additional metoprolol at 2230 tonight. Patient also checked her blood sugar and it was 270. Patient also took her diabetes medication at 2230. Patient denies trauma. Denies fever/chills. Denies headache. Denies chest pain. Review of Systems Review of Systems Constitutional: Denies fever or chills [] Eyes: Denies change in visual acuity, redness, or eye pain [] HENT: Denies nasal congestion or sore throat [] Respiratory: Denies cough or shortness of breath [] Cardiovascular: Denies chest pain or palpitations GI: Denies abdominal pain, nausea, vomiting, or diarrhea [] : Denies dysuria or hematuria [] Musculoskeletal: Denies back pain or joint pain [] Integument: Denies rash or skin lesions [] Neurologic: Denies headache, focal weakness or sensory changes [] Complete systems were reviewed and found to be within normal limits, except as documented in this note. Current Medications Current Medications Current Medications Medications (Trade) Dose Ordered Sig/Jeevan Start Time Stop Time Status Last Admin Dose Admin Clonidine HCl (Catapres) 0.1 mg 1X ONCE 09/12/18 00:30 09/12/18 00:31 DC 09/12/18 01:28 0.1 MG Allergies Allergies Allergies Coded Allergies Type Severity Reaction Last Updated Verified No Known Drug Allergies 11/23/16 No Physical Exam Physical Exam Constitutional: Well developed, well nourished, no acute distress, non-toxic appearance. [] HENT: Normocephalic, atraumatic, oropharynx moist Eyes: PERRL, EOMI, conjunctiva normal, no discharge. [] Neck: Normal range of motion, no tenderness, supple Cardiovascular: Heart rate regular rhythm, no murmur [] Lungs & Thorax: Bilateral breath sounds clear to auscultation [] Abdomen: Soft, no tenderness Skin: Warm, dry, no erythema, no rash. [] Extremities: No tenderness,, ROM intact, no edema. [] Neurologic: Alert and oriented X 3, normal motor function, normal sensory function, no focal deficits noted. [] Psychologic: Affect normal, judgement normal, mood normal. [] Current Patient Data Vital Signs Vital Signs Date Time Temp Pulse Resp B/P (MAP) Pulse Ox O2 Delivery O2 Flow Rate FiO2 09/12/18 01:59 82 97 09/12/18 01:28 172/74 09/11/18 23:58 98.1 18 Room Air 98.1 Lab Values Laboratory Tests Test 09/12/18 01:07 White Blood Count 6.7 x10^3/uL (4.0-11.0) Red Blood Count 3.91 x10^6/uL (3.50-5.40) Hemoglobin 12.6 g/dL (12.0-15.5) Hematocrit 37.9 % (36.0-47.0) Mean Corpuscular Volume 97 fL (79-100) Mean Corpuscular Hemoglobin 32 pg (25-35) Mean Corpuscular Hemoglobin Concent 33 g/dL (31-37) Red Cell Distribution Width 13.5 % (11.5-14.5) Platelet Count 181 x10^3/uL (140-400) Neutrophils (%) (Auto) 52 % (31-73) Lymphocytes (%) (Auto) 36 % (24-48) Monocytes (%) (Auto) 10 % (0-9) H Eosinophils (%) (Auto) 1 % (0-3) Basophils (%) (Auto) 1 % (0-3) Neutrophils # (Auto) 3.5 x10^3uL (1.8-7.7) Lymphocytes # (Auto) 2.4 x10^3/uL (1.0-4.8) Monocytes # (Auto) 0.6 x10^3/uL (0.0-1.1) Eosinophils # (Auto) 0.1 x10^3/uL (0.0-0.7) Basophils # (Auto) 0.0 x10^3/uL (0.0-0.2) Sodium Level 137 mmol/L (136-145) Potassium Level 4.1 mmol/L (3.5-5.1) Chloride Level 100 mmol/L (98-107) Carbon Dioxide Level 28 mmol/L (21-32) Anion Gap 9 (6-14) Blood Urea Nitrogen 23 mg/dL (7-20) H Creatinine 1.2 mg/dL (0.6-1.0) H Estimated GFR (Cockcroft-Gault) 43.8 BUN/Creatinine Ratio 19 (6-20) Glucose Level 173 mg/dL (70-99) H Calcium Level 10.1 mg/dL (8.5-10.1) Magnesium Level 1.5 mg/dL (1.8-2.4) L Total Bilirubin 0.3 mg/dL (0.2-1.0) Aspartate Amino Transferase (AST) 21 U/L (15-37) Alanine Aminotransferase (ALT) 19 U/L (14-59) Alkaline Phosphatase 112 U/L (46-116) Creatine Kinase 61 U/L (26-192) Creatine Kinase MB (Mass) 1.0 ng/mL (0.0-3.6) Creatine Kinase MB Relative Index % (0-4) Troponin I Quantitative < 0.017 ng/mL (0.000-0.055) Total Protein 6.8 g/dL (6.4-8.2) Albumin 3.6 g/dL (3.4-5.0) Albumin/Globulin Ratio 1.1 (1.0-1.7) Lipase 196 U/L (73-393) Laboratory Tests 09/12/18 01:07 Laboratory Tests 09/12/18 01:07 EKG EKG @0057 NSR at 85bpm, NO ST elevation, nonspecific t wave inversion III Radiology/Procedures Radiology/Procedures [] Course & Med Decision Making Course & Med Decision Making Pertinent Lab studies reviewed. (See chart for details) Patient presents with report of shakiness and elevated blood pressure. Patient noted to have elevated blood pressure upon arrival. Patient also noted to be anxious. NIHSS 0. Labs obtained and posted to chart. No significant end organ damage noted. Creatnine 1.2 which has been higher in past. EKG stable. Clonidine 0.1mg given with interval improvement. Patient reports she has an appointment with her PCP in AM. Patient stable for discharge home with outpatient follow-up with PCP. Discussed findings and plan with patient and family, who acknowledge understanding and agreement. Dragon Disclaimer Dragon Disclaimer This electronic medical record was generated, in whole or in part, using a voice recognition dictation system. Departure Departure Impression: Primary Impression: Hypertensive urgency Disposition: 01 HOME, SELF-CARE Condition: STABLE Referrals: VANESSA BURCH MD (PCP) Patient Instructions: Hypertension, Etay-fa-Rdfq Scripts Clonidine Hcl (CLONIDINE HCL) 0.1 Mg Tablet 0.1 MG PO BID PRN for ELEVATED BP, SEE COMMENTS, #14 TAB Take for Systolic blood pressure > 185 and/or Diastolic blood pressure > 110 Prov: MICHAELLE CAUSEY DO 09/12/18 NIHSS Stroke Scale NIH Stroke Scale: NIH Stroke Scale Response (Comments) Value Level of Consciousness: 0 Alert/Responsive 0 LOC Questions: 0 Answers both correctly 0 LOC Commands: 0 Performs both tasks 0 Best Gaze: 0 Normal 0 Visual: 0 No visual loss 0 Facial Palsy: 0 Normal, symmetrical 0 Motor - Left Arm 0 No drift 0 Motor - Right Arm 0 No drift 0 Motor - Left Leg 0 No drift 0 Motor: Right Leg 0 No drift 0 Limb Ataxia: 0 Absent 0 Sensory: 0 No loss 0 Best Language: 0 Normal 0 Dysathria: 0 Normal 0 Extinction and Inattention: 0 Normal 0 Total 0 Critical Care Time Critical care time was [30] minutes exclusive of procedures. MICHAELLE CAUSEY DO September 12, 2018 01:47
[2018-09-12 01:59] VITALS: BP 177/84
--- NOTE | 2018-09-12 07:04 | EKG ---
[facility] [address] [place] [address] Test Date: 2018-09-12 Test Time: 00:57:26 Pat Name: BRENNA RODGERS Department: Room: Gender: F [employer]: : 1940 Requested By: MICHAELLE CAUSEY Order Number: [id number] Reading MD: Chema Meraz Measurements Intervals Jennings Rate: 85 P: 0 MS: 174 QRS: 47 QRSD: 82 T: 18 QT: 342 QTc: 412 Interpretive Statements SINUS RHYTHM NORMAL ECG Electronically Signed On 10-09-2018 13:18:25 CDT by Chema Meraz
== END 2018-09-12 02:10 | disposition home or self-care (01) ==
LOC: ER 23:56
DX: I16.0 Hypertensive urgency (principal); J44.9 Chronic obstructive pulmonary disease, unspecified; E78.00 Pure hypercholesterolemia, unspecified; E11.9 Type 2 diabetes mellitus without complications; F41.9 Anxiety disorder, unspecified; F32.9 Major depressive disorder, single episode, unspecified
CPT/HCPCS: 36415; 80053; 82553; 83690; 83735; 84484; 85025; 93005; 99285-25